=== PATIENT | female | born 1950 | race Caucasian/White ===

== ENCOUNTER → 2017-10-17 | Outpatient (CLI) | payer MEDICARE, BC ==
[~2017-10-17] MED LIST: FLEXERIL 1010 MG/TAB PO; NORCO 325 MG-51 TAB PO; PRINZIDE 12.5 M1 TA1 PO
== END ==
LOC: MC.RAD 10:20
DX: Z12.31 Encounter for screening mammogram for malignant neoplasm of breast (principal); N63.10 Unspecified lump in the right breast, unspecified quadrant

== ENCOUNTER → 2018-11-22 | Outpatient (CLI) | payer MEDICARE, BC | LOC: MC.RAD 09:55 | DX: Z12.31 Encounter for screening mammogram for malignant neoplasm of breast (principal); Z78.0 Asymptomatic menopausal state ==

== ENCOUNTER → 2019-06-24 | Outpatient (CLI) | payer MEDICARE, BC | LOC: COL.VAS 14:14 | DX: R01.1 Cardiac murmur, unspecified (principal) ==

== ENCOUNTER → 2019-12-18 | Outpatient (CLI) | payer MEDICARE, BC | LOC: COL.PUL 09:44 | DX: R06.02 Shortness of breath (principal) ==

== ENCOUNTER → 2020-01-14 | Outpatient (CLI) | payer MEDICARE, BC | LOC: MC.RAD 09:57 | DX: Z12.31 Encounter for screening mammogram for malignant neoplasm of breast (principal) ==

== ENCOUNTER → 2021-01-18 | Outpatient (CLI) | payer MEDICARE, BC | LOC: MC.RAD 13:27 | DX: Z12.31 Encounter for screening mammogram for malignant neoplasm of breast (principal) ==

== ENCOUNTER → 2021-09-29 | Outpatient (CLI) | payer MEDICARE, BC | LOC: COL.VAS 12:22 | DX: R60.0 Localized edema (principal) ==

== ENCOUNTER → 2023-02-20 | Outpatient (CLI) | payer MEDICARE, BC | LOC: MC.RAD 11:35 | DX: Z12.31 Encounter for screening mammogram for malignant neoplasm of breast (principal) ==

== ENCOUNTER 2023-12-16 22:17 | Emergency (ER) | payer MEDICARE, BC ==
[~2023-12-16] VITALS: Ht 157.5 cm; Wt 63.6 kg
[2023-12-16 22:42] VITALS: BP 136/65; PULSE 82; TEMP 98.2
== END 2023-12-16 23:26 | disposition home or self-care (01) ==
LOC: COL.ER 22:17
DX: S91.201A Unspecified open wound of right great toe with damage to nail, initial encounter (principal); Z23 Encounter for immunization; W23.0XXA Caught, crushed, jammed, or pinched between moving objects, initial encounter

== ENCOUNTER → 2024-03-28 | Outpatient (CLI) | payer MEDICARE, BC | LOC: MC.RAD 13:15 | DX: Z12.31 Encounter for screening mammogram for malignant neoplasm of breast (principal) ==